=== PATIENT | male | born 1950 | race Two or more races ===

== ENCOUNTER → 2018-04-18 | Outpatient (CLI) | payer MEDICARE ==
[2015-12-27 11:00] VITALS: BP 130/72
[~2018-04-18] MED LIST: ENAL5TAB PO; HYDR-2758 PO; HYDR-2762 PO; LEVO112T4 PO; LEVO150T PO; LEVO500T59 PO; MELO15TA23 PO; METF500T5 PO; OMEP40CA5 PO; OXYC-323 PO; OXYMETAZOLINE 0.05% NASAL SPRAY 30ML BOTTLE. NS ONE; PRAV40TA2 PO; PRED50TA PO; ZOLPIDEM 5 MG TABLET. PO ONE
--- NOTE | 2018-04-19 09:55 | SLEEP ---
DATE OF STUDY: 04/18/2018 ATTENDING PHYSICIAN: Dr. Muñiz. The patient is 67 years old who weighs 180 pounds with a BMI of 30. The patient had a previous sleep study in 2013 and was found to have moderate PROSPER with worsening during REM sleep. The patient has been using CPAP at 9 cm of water, but due to increased hypersomnia another split night study was requested by primary care physician. During the night of study, the patient spent 400 minutes in bed and slept for 343 minutes with a sleep efficiency of 86%. Sleep latency was 8 minutes with a REM latency of 197 minutes. Overall, sleep architecture showed increased stage I and stage 2 sleep, absent slow wave and normal REM sleep. During the initial diagnostic portion of the study, the patient slept for 132 minutes. During that time, there were 103 obstructive apneas, 1 mixed apnea, no central apneas and 11 hypopneas. The patient's apnea-hypopnea index was 52 per hour, supine index of 56 per hour. REM sleep was not seen during the diagnostic portion. EKG monitoring revealed normal sinus rhythm, average heart rate was 61 beats per minute. No sustained arrhythmias were observed. Nocturnal oximetry study revealed an average oxygen saturation of 94% with the lowest of 74%. 53% of time oxygen saturation remained between 80% and 89% and 2% of time between 70 and 79%. No clinically significant PLMS observed. The patient met the criteria for CPAP initiation. It was started at 5 cm water and titrated up to 18 cm of water. At the final pressure, the patient slept for 92 minutes. The patient had supine sleep as well as long REM period was observed. The patient's AHI was reduced to 0 per hour and oxygen saturation remained above 88% with the lowest of 86%. The patient used a full face medium size mask. IMPRESSION: 1. Severe sleep apnea-hypopnea syndrome at an AHI of 52 per hour. 2. Nocturnal hypoxia secondary to obstructive sleep apnea, but resolved with CPAP. 3. No clinically significant periodic limb movements of sleep. RECOMMENDATIONS: 1. CPAP at 18 cm water completely eliminated the patient's sleep apnea and should be used on a nightly basis. 2. Follow up in 4-6 weeks to assess compliance with CPAP and to document clinical improvement. 3. Weight loss is advised. 4. Avoid [employer] SUPER[employer]OR depressants. 5. Caution regarding driving until symptoms of sleep apnea resolve with the use of CPAP. JUHI GLASS MD DR: APARNA/rachel JOB#: [id number] / [id number] KARO Zuñiga MD
== END | disposition home or self-care (01) ==
LOC: SLPLAB 17:51
PROVIDERS: ATTEND Family Medicine
DX: G47.33 Obstructive sleep apnea (adult) (pediatric) (principal); I10 Essential (primary) hypertension; E11.9 Type 2 diabetes mellitus without complications; E78.5 Hyperlipidemia, unspecified; J44.9 Chronic obstructive pulmonary disease, unspecified; I25.10 Atherosclerotic heart disease of native coronary artery without angina pectoris; Z79.4 Long term (current) use of insulin; Z96.653 Presence of artificial knee joint, bilateral; Z82.49 Family history of ischemic heart disease and other diseases of the circulatory system; Z83.3 Family history of diabetes mellitus
CPT/HCPCS: 95810

== ENCOUNTER 2019-09-17 23:20 | Observation (INO) | payer MEDICARE ==
[~2019-09-17] VITALS: Ht 165.1 cm; Wt 81.2 kg
[~2019-09-17 23:20] MED LIST changes: -HYDR-2758 PO; +HYDR-2761 PO; -HYDR-2762 PO; +HYDR-2765 PO; +METF500T16 PO; -METF500T5 PO; +OMEP40CA45 PO; -OMEP40CA5 PO; -OXYC-323 PO; +OXYC1TAB15 PO; -OXYMETAZOLINE 0.05% NASAL SPRAY 30ML BOTTLE. NS ONE; -ZOLPIDEM 5 MG TABLET. PO ONE
[2019-09-18 02:59] LABS: BASO # 0.1 x10^3/uL (0.0-0.2); BASO % 1 % (0-3); EOS # 0.2 x10^3/uL (0.0-0.7); EOS % 2 % (0-3); HEMATOCRIT 41.3 % (39.0-53.0); HEMOGLOBIN 14.1 g/dL (13.0-17.5); LYMPH # 2.9 x10^3/uL (1.0-4.8); LYMPH % 20 % (24-48); MEAN CORPUSCULAR HEMOGLOBIN 32 pg (25-35); MEAN CORPUSCULAR HGB CONC 34 g/dL (31-37); MEAN CORPUSCULAR VOLUME 94 fL (79-100); MONO # 1.4 x10^3/uL (0.0-1.1); MONO % 10 % (0-9); NEUT % 69 % (31-73); PLATELET COUNT 329 x10^3/uL (140-400); RED BLOOD COUNT 4.38 x10^6/uL (4.30-5.70); RED CELL DISTRIBUTION WIDTH 12.5 % (11.5-14.5); WHITE BLOOD COUNT 14.6 x10^3/uL (4.0-11.0)
[2019-09-18] MEDS ORDERED: IPRATRPIUM/ALBUTEROL 0.5/2.5MG 3 ML NEBU. NEB ONE (03:00)
[2019-09-18 03:04] LABS: CALCIUM 8.9 mg/dL (8.5-10.1); GFR 74.5; POTASSIUM 4.3 mmol/L (3.5-5.1)
--- NOTE | 2019-09-18 03:07 | PHYS DOC ---
Past Medical History Past Medical History: Bronchitis Past Surgical History: No Surgical History Additional Information: PT. STOPPED SMOKING RECENTLY. Alcohol Use: None Drug Use: None Adult General Chief Complaint Chief Complaint: SHORTNESS OF BREATH [facility] HPI Patient is a 69 year old male with history of who presents with shortness of breath, productive cough with fever chills sweats. Symptom onset began approximately 2 weeks ago and has gradually progress. Patient reports shortness of breath at rest. Denies history of COPD or asthma. Patient reports chest wall pain with cough and with light exertion. No other acute symptoms or complaints. Patient smokes cigarettes. [] Review of Systems Review of Systems ROS as per HPI All other systems were reviewed and found to be within normal limits, except as documented in this note. Current Medications Current Medications Current Medications Medications (Trade) Dose Ordered Sig/Michelle Start Time Stop Time Status Last Admin Dose Admin Albuterol/ Ipratropium (Duoneb) 3 ml 1X ONCE 09/18/19 03:00 09/18/19 03:01 DC 09/18/19 03:15 3 ML Azithromycin 500 mg/Sodium Chloride 250 ml @ 250 mls/hr 1X ONCE 09/18/19 03:30 09/18/19 04:29 DC 09/18/19 03:57 250 MLS/HR Ceftriaxone Sodium (Rocephin) 1 gm 1X ONCE 09/18/19 03:30 09/18/19 03:31 DC 09/18/19 03:50 1 GM Sodium Chloride 1,000 ml @ 1,000 mls/hr 1X ONCE 09/18/19 03:30 09/18/19 04:29 DC 09/18/19 03:50 1,000 MLS/HR Allergies Allergies Allergies Coded Allergies Type Severity Reaction Last Updated Verified No Known Drug Allergies 07/21/15 No Physical Exam Physical Exam ConstitutionalAcutely ill-appearing. [] HENT: Normocephalic, atraumatic, bilateral external ears normal, oropharynx moist, nose normal. [] Eyes: PERRLA, EOMI, conjunctiva normal, no discharge. [] Neck: Normal range of motion. [] Cardiovascular:Heart rate regular rhythm, no murmur [] Lungs & Thorax: Respirations nonlabored, coarse diminished breath sounds with rhonchi throughout.[] Abdomen: Bowel sounds normal. [] Skin: Warm, dry, no erythema, no rash. [] Back: No tenderness. [] Extremities: No tenderness, pedal edema. [] Neurologic: Alert and oriented X 3, normal motor function, normal sensory function, no focal deficits noted. [] Psychologic: Affect normal, judgement normal, mood normal. [] Current Patient Data Vital Signs Vital Signs Date Time Temp Pulse Resp B/P (MAP) Pulse Ox O2 Delivery O2 Flow Rate FiO2 09/18/19 04:00 88 20 133/68 (89) 95 Nasal Cannula 2.0 Lab Values Laboratory Tests Test 09/18/19 02:45 09/18/19 03:03 White Blood Count 14.6 x10^3/uL (4.0-11.0) H Red Blood Count 4.38 x10^6/uL (4.30-5.70) Hemoglobin 14.1 g/dL (13.0-17.5) Hematocrit 41.3 % (39.0-53.0) Mean Corpuscular Volume 94 fL (79-100) Mean Corpuscular Hemoglobin 32 pg (25-35) Mean Corpuscular Hemoglobin Concent 34 g/dL (31-37) Red Cell Distribution Width 12.5 % (11.5-14.5) Platelet Count 329 x10^3/uL (140-400) Neutrophils (%) (Auto) 69 % (31-73) Lymphocytes (%) (Auto) 20 % (24-48) L Monocytes (%) (Auto) 10 % (0-9) H Eosinophils (%) (Auto) 2 % (0-3) Basophils (%) (Auto) 1 % (0-3) Neutrophils # (Auto) 10.0 x10^3/uL (1.8-7.7) H Lymphocytes # (Auto) 2.9 x10^3/uL (1.0-4.8) Monocytes # (Auto) 1.4 x10^3/uL (0.0-1.1) H Eosinophils # (Auto) 0.2 x10^3/uL (0.0-0.7) Basophils # (Auto) 0.1 x10^3/uL (0.0-0.2) Sodium Level 135 mmol/L (136-145) L Potassium Level 4.3 mmol/L (3.5-5.1) Chloride Level 98 mmol/L (98-107) Carbon Dioxide Level 29 mmol/L (21-32) Anion Gap 8 (6-14) Blood Urea Nitrogen 8 mg/dL (8-26) Creatinine 1.0 mg/dL (0.7-1.3) Estimated GFR (Cockcroft-Gault) 74.5 BUN/Creatinine Ratio 8 (6-20) Glucose Level 266 mg/dL (70-99) H Lactic Acid Level 1.6 mmol/L (0.4-2.0) Calcium Level 8.9 mg/dL (8.5-10.1) Total Bilirubin 0.6 mg/dL (0.2-1.0) Aspartate Amino Transferase (AST) 20 U/L (15-37) Alanine Aminotransferase (ALT) 20 U/L (16-63) Alkaline Phosphatase 91 U/L (46-116) Troponin I Quantitative < 0.017 ng/mL (0.000-0.055) MQ-Uod-Y-Type Natriuretic Peptide 34 pg/mL (0-124) Total Protein 7.6 g/dL (6.4-8.2) Albumin 3.2 g/dL (3.4-5.0) L Albumin/Globulin Ratio 0.7 (1.0-1.7) L Influenza Type A Antigen Negative (NEGATIVE) Influenza Type B Antigen Negative (NEGATIVE) Laboratory Tests 09/18/19 02:45 Laboratory Tests 09/18/19 02:45 EKG EKG [EKG: Reviewed] Radiology/Procedures Radiology/Procedures [Chest XR: NAD per radiology reprot. ] Course & Med Decision Making Course & Med Decision Making Pertinent Labs and Imaging studies reviewed. (See chart for details) Patient with clinical pneumonia with resp compromise not evident on imaging. IVF and abx given. Will admit to the hospitalist service Dragon Disclaimer Dragon Disclaimer This electronic medical record was generated, in whole or in part, using a voice recognition dictation system. Departure Departure Impression: Primary Impression: Pneumonia Disposition: ADMITTED INPATIENT Condition: STABLE Referrals: UNKNOWN PCP NAME (PCP) KIMO DHILLON DO Sep 18, 2019 03:07
[2019-09-18 03:10] LABS: ALBUMIN 3.2 g/dL (3.4-5.0); ALBUMIN/GLOBULIN RATIO 0.7 (1.0-1.7); TOTAL BILIRUBIN 0.6 mg/dL (0.2-1.0); TOTAL PROTEIN 7.6 g/dL (6.4-8.2)
[2019-09-18] MEDS ORDERED: AZITHROMYCIN 500 MG in IV NORMAL SALINE 250ML 250 ML IV ONE (03:30)
[2019-09-18] MEDS ORDERED: cefTRIAXone IV Push 1 GM VIAL. IVP ONE (03:30)
[2019-09-18] MEDS ORDERED: IV NORMAL SALINE 1000ML BAG 1,000 ML IV ONE (03:30)
[2019-09-18 03:31] LABS: INFLUENZA A PATIENT NEGATIVE (NEGATIVE); INFLUENZA B PATIENT NEGATIVE (NEGATIVE)
--- NOTE | 2019-09-18 04:00 | RAD ---
EXAM: AP View of the chest DATE: 09/18/2019 3:07 AM INDICATION: Shortness of breath COMPARISON: No Prior FINDINGS: The heart is not enlarged. Aorta is mildly tortuous. Mediastinal and hilar contours are normal. No focal parenchymal airspace opacity. Calcified granuloma lower left lung. No pleural effusion or pneumothorax. IMPRESSION: No evidence for acute cardiopulmonary process. Electronically signed by: Fadi Juárez MD (09/18/2019 3:57 AM) [facility]
--- NOTE | 2019-09-18 07:00 | EKG ---
[facility] [address] [place] [address] Test Date: 2019-09-18 Test Time: 03:04:46 Pat Name: RUBEN CADENA Department: Room: Gender: M Training Consultant: : [id number] Requested By: KIMO DHILLON Order Number: [id number] Reading MD: Measurements Intervals [place] Rate: 81 P: 55 MD: 164 QRS: 69 QRSD: 90 T: 66 QT: 354 QTc: 416 Interpretive Statements SINUS RHYTHM QRS(T) CONTOUR ABNORMALITY CONSIDER ANTEROSEPTAL MYOCARDIAL DAMAGE CONSIDER INFERIOR MYOCARDIAL DAMAGE POSSIBLY ABNORMAL ECG RI6.01 No previous ECG available for comparison
[2019-09-18 07:15] VITALS: BP 107/56
[2019-09-18] MEDS: IPRATRPIUM/ALBUTEROL 0.5/2.5MG 3 ML NEBU. NEB SCH ×4 (08:08→20:10)
[2019-09-18 11:04] VITALS: BP 123/67
[2019-09-18] MEDS ORDERED: AZITHROMYCIN 250 MG TABLET. PO ONE (11:45)
[2019-09-18] MEDS ORDERED: IV DEXTROSE 5% 250 ML BAG. IV PRN (11:45)
[2019-09-18] MEDS ORDERED: guaiFENesin DM 200MG/20MG 10 ML SYRUP PO PRN (11:45)
[2019-09-18] MEDS ORDERED: DEXTROSE 50% 25 GM / 50ML DISP.SYRIN. IV PRN (11:45)
[2019-09-18] MEDS: PANTOPRAZOLE 40 MG TABLET.DR. PO SCH (13:08)
[2019-09-18] MEDS: metFORMIN 500 MG TABLET PO SCH ×2 (13:08→17:48)
[2019-09-18] MEDS: BENZONATATE 100 MG CAPSULE. PO SCH ×2 (13:12→21:57)
[2019-09-18] MEDS: INSULIN LISPRO 300 UNITS/3 ML VIAL. SQ SCH ×2 (13:12→17:54)
--- NOTE | 2019-09-18 13:20 | NUR ---
SS following for discharge planning. SS reviewed pt chart. Pt is from home with spouse and is currently on room air. PT/OT ordered. SS will continue to follow for discharge planning.
--- NOTE | 2019-09-18 14:53 | PDOC1 ---
History and Physical Date of Admission Date of Admission DATE: 09/18/19 TIME: 14:49 Identification/Chief Complaint Chief Complaint cough x 3 weeks Source Source: Caregiver, Chart review, Patient History of Present Illness History of Present Illness 69 male, cough, heriberto sputum,weak x 3 weeks. no fevers, non smoker, Possible pNA On CXR, WBC 14, i continued CAP coverage from ER. FLu NEg, mild hyponatremia 135.No consults needed Past Medical History Cardiovascular: HTN, Hyperlipidemia Pulmonary: COPD CENTRAL NERVOUS SYSTEM: Other GI: No pertinent hx Heme/Onc: No pertinent hx Hepatobiliary: No pertinent hx Psych: No pertinent hx Musculoskeletal: Osteoarthritis Rheumatologic: No pertinent hx Infectious disease: No pertinent hx Renal/: No pertinent hx Endocrine: Diabetes, Hypothyroidism Past Surgical History Past Surgical History: Total knee replacement Family History Family History: Heart Disease Social History Smoke: No ALCOHOL: none Drugs: None Current Medications Current Medications Current Medications Albuterol/ Ipratropium (Duoneb) 3 ml 1X ONCE NEB Last administered on 09/18/19at 03:15; Start 09/18/19 at 03:00; Stop 09/18/19 at 03:01; Status DC Ceftriaxone Sodium (Rocephin) 1 gm 1X ONCE IVP Last administered on 09/18/19at 03:50; Start 09/18/19 at 03:30; Stop 09/18/19 at 03:31; Status DC Azithromycin 500 mg/Sodium Chloride 250 ml @ 250 mls/hr 1X ONCE IV Last administered on 09/18/19at 03:57; Start 09/18/19 at 03:30; Stop 09/18/19 at 04:29; Status DC Sodium Chloride 1,000 ml @ 1,000 mls/hr 1X ONCE IV Last administered on 09/18/19at 03:50; Start 09/18/19 at 03:30; Stop 09/18/19 at 04:29; Status DC Albuterol/ Ipratropium (Duoneb) 3 ml RTQID NEB Last administered on 09/18/19at 12:07; Start 09/18/19 at 08:00; Stop 09/19/19 at 07:59 Benzonatate (Tessalon Perle) 100 mg COH160 PO Last administered on 09/18/19at 13:12; Start 09/18/19 at 14:00 Guaifenesin (Robitussin Dm) 10 ml PRN Q6HRS PRN PO COUGH; Start 09/18/19 at 11:45 Ceftriaxone Sodium (Rocephin) 1 gm Q24H IVP ; Start 09/19/19 at 06:00 Azithromycin (Zithromax) 250 mg DAILY PO ; Start 09/19/19 at 09:00 Azithromycin (Zithromax) 250 mg 1X ONCE PO ; Start 09/18/19 at 11:45; Stop 09/18/19 at 11:46; Status UNV Levothyroxine Sodium (Synthroid) 150 mcg QHS PO ; Start 09/18/19 at 21:00 Metformin HCl (Glucophage) 500 mg BIDWMEALS PO Last administered on 09/18/19at 13:08; Start 09/18/19 at 12:00 Oxycodone/ Acetaminophen (Percocet 5/325) 1 tab PRN QID PRN PO pain; Start 09/18/19 at 11:45 Lisinopril (Prinivil) 10 mg QHS PO ; Start 09/18/19 at 21:00 Pantoprazole Sodium (Protonix) 40 mg DAILYAC PO Last administered on 09/18/19at 13:08; Start 09/18/19 at 12:00 Atorvastatin Calcium (Lipitor) 10 mg QHS PO ; Start 09/18/19 at 21:00 Insulin Human Lispro (HumaLOG) 0-9 UNITS TIDWMEALS SQ Last administered on 09/18/19at 13:12; Start 09/18/19 at 12:00 Dextrose (Dextrose 50%-Water Syringe) 12.5 gm PRN Q15MIN PRN IV SEE COMMENTS; Start 09/18/19 at 11:45 Dextrose (Iv Dextrose 5%) 250 ml PRN Q15MIN PRN IV SEE COMMENTS; Start 09/18/19 at 11:45 Active Scripts Active Prednisone 50 Mg Tablet 1 Tab PO DAILY Levaquin (Levofloxacin) 500 Mg Tablet 500 Mg PO DAILY16 Synthroid (Levothyroxine Sodium) 150 Mcg Tablet 150 Mcg PO QHS Reported Percocet 5-325 Mg Tablet (Oxycodone/Acetaminophen) 1 Each Tablet 1-2 Tab PO Q4-6HRS Gave this moring May take when needed Omeprazole 40 Mg Capsule.dr 40 Mg PO DAILY Gave this morning Take tomorrow morning before breakfast Metformin Hcl 500 Mg Tablet 500 Mg PO BIDWMEALS Gave this am Take before dinner Pravastatin Sodium 40 Mg Tablet 40 Mg PO HS Gave last night Take tonight Enalapril Maleate 5 Mg Tablet 5 Mg PO HS Gave last night Take again tonight Allergies Allergies: Coded Allergies: No Known Drug Allergies (Unverified , 07/21/15) ROS Review of System asper HPI, all else is neg Physical Exam General: Alert, Oriented X3, Cooperative, No acute distress HEENT: Atraumatic, PERRLA, EOMI Lungs: Normal air movement, Other (dimnished BS) Heart: S1S2, RRR, no thrills, no rubs, no gallops, no murmurs Abdomen: Normal bowel sounds, Soft, No tenderness, No hepatosplenomegaly, No masses Male Genitals Exam: normal genitalia, normal prostate Rectal Exam: not examined PELVIC: Nml ext genitalia, Nml ext vulva, Nml ext vagina, Nml ext cervic, Nml ext uterus Extremities: No clubbing, No cyanosis, No edema, Normal pulses, No tenderness/ swelling Skin: No rashes, No breakdown, No significant lesion Neuro: Normal gait, Normal speech, Strength at 5/5 X4 ext, Normal tone, Sensation intact, Cranial nerves 3-12 NL, Reflexes 2+ Psych/Mental Status: Mental status NL, Mood NL Vitals Vitals Vital Signs Date Time Temp Pulse Resp B/P (MAP) Pulse Ox O2 Delivery O2 Flow Rate FiO2 09/18/19 12:07 Room Air 09/18/19 11:04 97.8 89 20 123/67 (85) 96 97.8 09/18/19 04:45 2.0 Labs Labs Laboratory Tests Test 09/18/19 02:45 09/18/19 03:03 09/18/19 12:03 09/18/19 12:30 White Blood Count 14.6 x10^3/uL (4.0-11.0) Red Blood Count 4.38 x10^6/uL (4.30-5.70) Hemoglobin 14.1 g/dL (13.0-17.5) Hematocrit 41.3 % (39.0-53.0) Mean Corpuscular Volume 94 fL (79-100) Mean Corpuscular Hemoglobin 32 pg (25-35) Mean Corpuscular Hemoglobin Concent 34 g/dL (31-37) Red Cell Distribution Width 12.5 % (11.5-14.5) Platelet Count 329 x10^3/uL (140-400) Neutrophils (%) (Auto) 69 % (31-73) Lymphocytes (%) (Auto) 20 % (24-48) Monocytes (%) (Auto) 10 % (0-9) Eosinophils (%) (Auto) 2 % (0-3) Basophils (%) (Auto) 1 % (0-3) Neutrophils # (Auto) 10.0 x10^3/uL (1.8-7.7) Lymphocytes # (Auto) 2.9 x10^3/uL (1.0-4.8) Monocytes # (Auto) 1.4 x10^3/uL (0.0-1.1) Eosinophils # (Auto) 0.2 x10^3/uL (0.0-0.7) Basophils # (Auto) 0.1 x10^3/uL (0.0-0.2) Sodium Level 135 mmol/L (136-145) Potassium Level 4.3 mmol/L (3.5-5.1) Chloride Level 98 mmol/L (98-107) Carbon Dioxide Level 29 mmol/L (21-32) Anion Gap 8 (6-14) Blood Urea Nitrogen 8 mg/dL (8-26) Creatinine 1.0 mg/dL (0.7-1.3) Estimated GFR (Cockcroft-Gault) 74.5 BUN/Creatinine Ratio 8 (6-20) Glucose Level 266 mg/dL (70-99) Lactic Acid Level 1.6 mmol/L (0.4-2.0) Calcium Level 8.9 mg/dL (8.5-10.1) Total Bilirubin 0.6 mg/dL (0.2-1.0) Aspartate Amino Transf (AST/SGOT) 20 U/L (15-37) Alanine Aminotransferase (ALT/SGPT) 20 U/L (16-63) Alkaline Phosphatase 91 U/L (46-116) Troponin I Quantitative < 0.017 ng/mL (0.000-0.055) ED-Mum-T-Type Natriuretic Peptide 34 pg/mL (0-124) Total Protein 7.6 g/dL (6.4-8.2) Albumin 3.2 g/dL (3.4-5.0) Albumin/Globulin Ratio 0.7 (1.0-1.7) Influenza Type A Antigen Negative (NEGATIVE) Influenza Type B Antigen Negative (NEGATIVE) Glucose (Fingerstick) 338 mg/dL (70-99) Erythrocyte Sedimentation Rate 68 (0-15) Laboratory Tests Test 09/18/19 02:45 09/18/19 03:03 09/18/19 12:03 09/18/19 12:30 White Blood Count 14.6 x10^3/uL (4.0-11.0) Red Blood Count 4.38 x10^6/uL (4.30-5.70) Hemoglobin 14.1 g/dL (13.0-17.5) Hematocrit 41.3 % (39.0-53.0) Mean Corpuscular Volume 94 fL (79-100) Mean Corpuscular Hemoglobin 32 pg (25-35) Mean Corpuscular Hemoglobin Concent 34 g/dL (31-37) Red Cell Distribution Width 12.5 % (11.5-14.5) Platelet Count 329 x10^3/uL (140-400) Neutrophils (%) (Auto) 69 % (31-73) Lymphocytes (%) (Auto) 20 % (24-48) Monocytes (%) (Auto) 10 % (0-9) Eosinophils (%) (Auto) 2 % (0-3) Basophils (%) (Auto) 1 % (0-3) Neutrophils # (Auto) 10.0 x10^3/uL (1.8-7.7) Lymphocytes # (Auto) 2.9 x10^3/uL (1.0-4.8) Monocytes # (Auto) 1.4 x10^3/uL (0.0-1.1) Eosinophils # (Auto) 0.2 x10^3/uL (0.0-0.7) Basophils # (Auto) 0.1 x10^3/uL (0.0-0.2) Sodium Level 135 mmol/L (136-145) Potassium Level 4.3 mmol/L (3.5-5.1) Chloride Level 98 mmol/L (98-107) Carbon Dioxide Level 29 mmol/L (21-32) Anion Gap 8 (6-14) Blood Urea Nitrogen 8 mg/dL (8-26) Creatinine 1.0 mg/dL (0.7-1.3) Estimated GFR (Cockcroft-Gault) 74.5 BUN/Creatinine Ratio 8 (6-20) Glucose Level 266 mg/dL (70-99) Lactic Acid Level 1.6 mmol/L (0.4-2.0) Calcium Level 8.9 mg/dL (8.5-10.1) Total Bilirubin 0.6 mg/dL (0.2-1.0) Aspartate Amino Transf (AST/SGOT) 20 U/L (15-37) Alanine Aminotransferase (ALT/SGPT) 20 U/L (16-63) Alkaline Phosphatase 91 U/L (46-116) Troponin I Quantitative < 0.017 ng/mL (0.000-0.055) LA-Tkw-S-Type Natriuretic Peptide 34 pg/mL (0-124) Total Protein 7.6 g/dL (6.4-8.2) Albumin 3.2 g/dL (3.4-5.0) Albumin/Globulin Ratio 0.7 (1.0-1.7) Influenza Type A Antigen Negative (NEGATIVE) Influenza Type B Antigen Negative (NEGATIVE) Glucose (Fingerstick) 338 mg/dL (70-99) Erythrocyte Sedimentation Rate 68 (0-15) VTE Prophylaxis Ordered VTE Prophylaxis Devices: Yes VTE Pharmacological Prophylaxi: Yes Assessment/Plan Assessment/Plan CAP , gram positive, gram negative LEUkocytosis PLAN: OBS, home tmr cap coverage Recheck leukocytosis tmr JOSETTE HSU MD Sep 18, 2019 14:53
[2019-09-18 15:09] VITALS: BP 114/61
[2019-09-18 18:44] LABS: BILIRUBIN,URINE NEGATIVE (NEG); CLARITY,URINE CLEAR; COLOR,URINE YELLOW; NITRITE,URINE NEGATIVE (NEG); PROTEIN,URINE NEGATIVE (NEG-TRACE)
[2019-09-18 18:57] LABS: RBC,URINE 0 /HPF (0-2)
[2019-09-18 18:58] LABS: BACTERIA,URINE 0 /HPF (0-FEW); SQUAMOUS EPITHELIAL CELL,UR OCC /LPF; WBC,URINE OCC /HPF (0-4)
[2019-09-18 19:55] VITALS: BP 116/65
[2019-09-18] MEDS ORDERED: ATORVASTATIN CALCIUM 10 MG TABLET. PO SCH (21:00)
[2019-09-18] MEDS ORDERED: LISINOPRIL 10 MG TABLET PO SCH (21:00)
[2019-09-18] MEDS ORDERED: LEVOTHYROXINE 150 MCG TABLET PO SCH (21:00)
[2019-09-18] MEDS: oxyCODONE/APAP 5/325 1 TAB TABLET PO PRN (22:02)
[2019-09-18 23:45] VITALS: BP 93/58
[2019-09-19] MEDS: oxyCODONE/APAP 5/325 1 TAB TABLET PO PRN (02:27)
[2019-09-19 03:40] VITALS: BP 98/53
[2019-09-19 04:58] LABS: BASO # 0.1 x10^3/uL (0.0-0.2); BASO % 1 % (0-3); EOS # 0.2 x10^3/uL (0.0-0.7); EOS % 2 % (0-3); HEMATOCRIT 36.6 % (39.0-53.0); HEMOGLOBIN 12.5 g/dL (13.0-17.5); LYMPH # 2.2 x10^3/uL (1.0-4.8); LYMPH % 17 % (24-48); MEAN CORPUSCULAR HEMOGLOBIN 32 pg (25-35); MEAN CORPUSCULAR HGB CONC 34 g/dL (31-37); MEAN CORPUSCULAR VOLUME 94 fL (79-100); MONO # 1.2 x10^3/uL (0.0-1.1); MONO % 9 % (0-9); NEUT # 9.3 x10^3/uL (1.8-7.7); NEUT % 72 % (31-73); PLATELET COUNT 330 x10^3/uL (140-400); RED CELL DISTRIBUTION WIDTH 12.3 % (11.5-14.5)
[2019-09-19 05:30] LABS: CALCIUM 8.5 mg/dL (8.5-10.1); GFR 74.5; POTASSIUM 3.9 mmol/L (3.5-5.1)
[2019-09-19] MEDS ORDERED: cefTRIAXone IV Push 1 GM VIAL. IVP SCH (06:00)
[2019-09-19 07:15] VITALS: BP 119/63
[2019-09-19] MEDS ORDERED: AZITHROMYCIN 250 MG TABLET. PO SCH (09:00)
[2019-09-19] MEDS ORDERED: INSULIN GLARGINE SYRINGE. SQ STA (09:21)
[2019-09-19] MEDS: BENZONATATE 100 MG CAPSULE. PO SCH ×2 (09:43→14:25)
[2019-09-19] MEDS: metFORMIN 500 MG TABLET PO SCH (09:44)
[2019-09-19] MEDS: PANTOPRAZOLE 40 MG TABLET.DR. PO SCH (09:45)
[2019-09-19] MEDS: INSULIN LISPRO 300 UNITS/3 ML VIAL. SQ SCH ×2 (09:51→12:26)
[2019-09-19 10:58] VITALS: BP 85/53
[2019-09-19] MEDS ORDERED: INSU100I13 SQ (12:54)
[2019-09-19] MEDS ORDERED: BENZ-8 PO (12:54)
--- NOTE | 2019-09-19 12:57 | PDOC3 ---
Discharge Summary Visit Information Date of Admission: Sep 18, 2019 Date of Discharge: Sep 19, 2019 Admitting Diagnosis Comment: CAP , gram positive, gram negative LEUkocytosis DM 2 uncontrolled - Brief Hospital Course Allergies Allergies Coded Allergies Type Severity Reaction Last Updated Verified No Known Drug Allergies 07/21/15 No Vital Signs Vital Signs Date Time Temp Pulse Resp B/P (MAP) Pulse Ox O2 Delivery O2 Flow Rate FiO2 09/19/19 10:58 98.3 80 20 85/53 (64) 97 Room Air 98.3 09/18/19 20:00 2.0 Lab Results Laboratory Tests Test 09/18/19 02:45 09/18/19 03:03 09/18/19 12:03 09/18/19 12:30 White Blood Count 14.6 x10^3/uL (4.0-11.0) Red Blood Count 4.38 x10^6/uL (4.30-5.70) Hemoglobin 14.1 g/dL (13.0-17.5) Hematocrit 41.3 % (39.0-53.0) Mean Corpuscular Volume 94 fL (79-100) Mean Corpuscular Hemoglobin 32 pg (25-35) Mean Corpuscular Hemoglobin Concent 34 g/dL (31-37) Red Cell Distribution Width 12.5 % (11.5-14.5) Platelet Count 329 x10^3/uL (140-400) Neutrophils (%) (Auto) 69 % (31-73) Lymphocytes (%) (Auto) 20 % (24-48) Monocytes (%) (Auto) 10 % (0-9) Eosinophils (%) (Auto) 2 % (0-3) Basophils (%) (Auto) 1 % (0-3) Neutrophils # (Auto) 10.0 x10^3/uL (1.8-7.7) Lymphocytes # (Auto) 2.9 x10^3/uL (1.0-4.8) Monocytes # (Auto) 1.4 x10^3/uL (0.0-1.1) Eosinophils # (Auto) 0.2 x10^3/uL (0.0-0.7) Basophils # (Auto) 0.1 x10^3/uL (0.0-0.2) Sodium Level 135 mmol/L (136-145) Potassium Level 4.3 mmol/L (3.5-5.1) Chloride Level 98 mmol/L (98-107) Carbon Dioxide Level 29 mmol/L (21-32) Anion Gap 8 (6-14) Blood Urea Nitrogen 8 mg/dL (8-26) Creatinine 1.0 mg/dL (0.7-1.3) Estimated GFR (Cockcroft-Gault) 74.5 BUN/Creatinine Ratio 8 (6-20) Glucose Level 266 mg/dL (70-99) Lactic Acid Level 1.6 mmol/L (0.4-2.0) Calcium Level 8.9 mg/dL (8.5-10.1) Total Bilirubin 0.6 mg/dL (0.2-1.0) Aspartate Amino Transf (AST/SGOT) 20 U/L (15-37) Alanine Aminotransferase (ALT/SGPT) 20 U/L (16-63) Alkaline Phosphatase 91 U/L (46-116) Troponin I Quantitative < 0.017 ng/mL (0.000-0.055) KY-Szn-D-Type Natriuretic Peptide 34 pg/mL (0-124) Total Protein 7.6 g/dL (6.4-8.2) Albumin 3.2 g/dL (3.4-5.0) Albumin/Globulin Ratio 0.7 (1.0-1.7) Influenza Type A Antigen Negative (NEGATIVE) Influenza Type B Antigen Negative (NEGATIVE) Glucose (Fingerstick) 338 mg/dL (70-99) Erythrocyte Sedimentation Rate 68 (0-15) Test 09/18/19 16:46 09/18/19 17:20 09/18/19 21:11 09/19/19 04:30 Glucose (Fingerstick) 352 mg/dL (70-99) 247 mg/dL (70-99) Urine Collection Type Unknown Urine Color Yellow Urine Clarity Clear Urine pH 7.0 Urine Specific [place] >=1.030 Urine Protein Negative mg/dL (NEG-TRACE) Urine Glucose (UA) >=1000 mg/dL (NEG) Urine Ketones (Stick) Negative mg/dL (NEG) Urine Blood Negative (NEG) Urine Nitrite Negative (NEG) Urine Bilirubin Negative (NEG) Urine Urobilinogen Dipstick 1.0 mg/dL (0.2 mg/dL) Urine Leukocyte Esterase Negative (NEG) Urine RBC 0 /HPF (0-2) Urine WBC Occ /HPF (0-4) Urine Squamous Epithelial Cells Occ /LPF Urine Bacteria 0 /HPF (0-FEW) White Blood Count 13.0 x10^3/uL (4.0-11.0) Red Blood Count 3.90 x10^6/uL (4.30-5.70) Hemoglobin 12.5 g/dL (13.0-17.5) Hematocrit 36.6 % (39.0-53.0) Mean Corpuscular Volume 94 fL (79-100) Mean Corpuscular Hemoglobin 32 pg (25-35) Mean Corpuscular Hemoglobin Concent 34 g/dL (31-37) Red Cell Distribution Width 12.3 % (11.5-14.5) Platelet Count 330 x10^3/uL (140-400) Neutrophils (%) (Auto) 72 % (31-73) Lymphocytes (%) (Auto) 17 % (24-48) Monocytes (%) (Auto) 9 % (0-9) Eosinophils (%) (Auto) 2 % (0-3) Basophils (%) (Auto) 1 % (0-3) Neutrophils # (Auto) 9.3 x10^3/uL (1.8-7.7) Lymphocytes # (Auto) 2.2 x10^3/uL (1.0-4.8) Monocytes # (Auto) 1.2 x10^3/uL (0.0-1.1) Eosinophils # (Auto) 0.2 x10^3/uL (0.0-0.7) Basophils # (Auto) 0.1 x10^3/uL (0.0-0.2) Sodium Level 135 mmol/L (136-145) Potassium Level 3.9 mmol/L (3.5-5.1) Chloride Level 98 mmol/L (98-107) Carbon Dioxide Level 27 mmol/L (21-32) Anion Gap 10 (6-14) Blood Urea Nitrogen 8 mg/dL (8-26) Creatinine 1.0 mg/dL (0.7-1.3) Estimated GFR (Cockcroft-Gault) 74.5 Glucose Level 251 mg/dL (70-99) Calcium Level 8.5 mg/dL (8.5-10.1) Test 09/19/19 07:11 09/19/19 11:16 Glucose (Fingerstick) 257 mg/dL (70-99) 331 mg/dL (70-99) Laboratory Tests Test 09/18/19 16:46 09/18/19 17:20 09/18/19 21:11 09/19/19 04:30 Glucose (Fingerstick) 352 mg/dL (70-99) 247 mg/dL (70-99) Urine Collection Type Unknown Urine Color Yellow Urine Clarity Clear Urine pH 7.0 Urine Specific [place] >=1.030 Urine Protein Negative mg/dL (NEG-TRACE) Urine Glucose (UA) >=1000 mg/dL (NEG) Urine Ketones (Stick) Negative mg/dL (NEG) Urine Blood Negative (NEG) Urine Nitrite Negative (NEG) Urine Bilirubin Negative (NEG) Urine Urobilinogen Dipstick 1.0 mg/dL (0.2 mg/dL) Urine Leukocyte Esterase Negative (NEG) Urine RBC 0 /HPF (0-2) Urine WBC Occ /HPF (0-4) Urine Squamous Epithelial Cells Occ /LPF Urine Bacteria 0 /HPF (0-FEW) White Blood Count 13.0 x10^3/uL (4.0-11.0) Red Blood Count 3.90 x10^6/uL (4.30-5.70) Hemoglobin 12.5 g/dL (13.0-17.5) Hematocrit 36.6 % (39.0-53.0) Mean Corpuscular Volume 94 fL (79-100) Mean Corpuscular Hemoglobin 32 pg (25-35) Mean Corpuscular Hemoglobin Concent 34 g/dL (31-37) Red Cell Distribution Width 12.3 % (11.5-14.5) Platelet Count 330 x10^3/uL (140-400) Neutrophils (%) (Auto) 72 % (31-73) Lymphocytes (%) (Auto) 17 % (24-48) Monocytes (%) (Auto) 9 % (0-9) Eosinophils (%) (Auto) 2 % (0-3) Basophils (%) (Auto) 1 % (0-3) Neutrophils # (Auto) 9.3 x10^3/uL (1.8-7.7) Lymphocytes # (Auto) 2.2 x10^3/uL (1.0-4.8) Monocytes # (Auto) 1.2 x10^3/uL (0.0-1.1) Eosinophils # (Auto) 0.2 x10^3/uL (0.0-0.7) Basophils # (Auto) 0.1 x10^3/uL (0.0-0.2) Sodium Level 135 mmol/L (136-145) Potassium Level 3.9 mmol/L (3.5-5.1) Chloride Level 98 mmol/L (98-107) Carbon Dioxide Level 27 mmol/L (21-32) Anion Gap 10 (6-14) Blood Urea Nitrogen 8 mg/dL (8-26) Creatinine 1.0 mg/dL (0.7-1.3) Estimated GFR (Cockcroft-Gault) 74.5 Glucose Level 251 mg/dL (70-99) Calcium Level 8.5 mg/dL (8.5-10.1) Test 09/19/19 07:11 09/19/19 11:16 Glucose (Fingerstick) 257 mg/dL (70-99) 331 mg/dL (70-99) Brief Hospital Course Mr. Main is a 69 old male, DM on OHA< came in bec of 3 weeks heriberto sputrum and gen weakness, CXR maybe pNA so we treated accdgly, BUt BS 300s,on OHA< never on insulin, I had to start lantus 20 qhs and cont OHA and i wrote lantus and glucometer and BS strips scripts Pt seen and examined COnsultsl none Proc; CXR dc < 30 mins Discharge Information Condition at Discharge: Improved, Stable Disposition/Orders: D/C to Home Scheduled Benzonatate (Benzonatate) 100 Mg Capsule, 100 MG PO [id number] for cough, #30 Prescribed by: JOSETTE HSU on 09/19/19 1254 Enalapril Maleate (Enalapril Maleate) 5 Mg Tablet, 5 MG PO HS for high blood pressure, (Reported) Gave last night Take again tonight Entered as Reported by: CHINTAN VILLEDA on 07/03/15 1521 Last Action: Converted on 09/18/19 1134 by JOSETTE HSU Insulin Glargine,Hum.rec.anlog (Lantus Solostar) 100 Unit/1 Ml Insuln.pen, 20 UNIT SQ QHS for dm 2 for 30 Days, #15 Ref 5 Prescribed by: JOSETTE HSU on 09/19/19 1254 Levothyroxine Sodium (Synthroid) 150 Mcg Tablet, 150 MCG PO QHS, #30 Prescribed by: REG HILTON on 10/23/15 1010 Last Action: Continued on 09/18/191133 by JOSETTE HSU Metformin Hcl (Metformin Hcl) 500 Mg Tablet, 500 MG PO BIDWMEALS for ANTI- DIABETIC, Ref 0 (Reported) Gave this am Take before dinner Entered as Reported by: CHINTAN VILLEDA on 07/03/15 1523 Last Action: Continued on 09/18/191133 by JOSETTE HSU Omeprazole (Omeprazole) 40 Mg Capsule.dr, 40 MG PO DAILY for gastric upset, (Reported) Gave this morning Take tomorrow morning before breakfast Entered as Reported by: NONA ADRIAN on 07/07/15 1405 Last Action: Converted on 09/18/191133 by JOSETTE HSU Oxycodone/Apap 5-325 (Percocet 5-325 Mg Tablet ) 1 Each Tablet, 1-2 TAB PO Q4- 6HRS, #40 (Reported) Gave this moring May take when needed Entered as Reported by: DANILO ESCOBAR on 07/24/15 1437 Last Action: Continued on 09/18/191133 by JOSETTE HSU Pravastatin Sodium (Pravastatin Sodium) 40 Mg Tablet, 40 MG PO HS for high cholesterol, (Reported) Gave last night Take tonight Entered as Reported by: CHINTAN VILLEDA on 07/03/15 1522 Last Action: Converted on 09/18/191133 by JOSETTE HSU Discontinued Medications Levofloxacin (Levaquin) 500 Mg Tablet, 500 MG PO DAILY16, #7 Prescribed by: REG HILTON on 10/23/15 1010 Last Action: HELD on 09/18/191133 by JOSETTE HSU Prednisone (Prednisone) 50 Mg Tablet, 1 TAB PO DAILY, #5 Prescribed by: REG HILTON on 10/23/15 1010 Last Action: HELD on 09/18/191133 by JOSETTE SCHROEDER MD Sep 19, 2019 12:57
--- NOTE | 2019-09-19 15:05 | NUR ---
Discharge Note: RUBEN CADENA [address] [place] [address] Discharge instructions and discharge home medications reviewed with Patient and a copy given. All questions have been answered and understanding verbalized. The following instructions and handouts were given: f/u with PCP within one week. Discontinued lines and drains: Peripheral IV intact. Patient discharged to Home or Self Care with Family Member via [facility].
== END 2019-09-19 15:14 | disposition home or self-care (01) ==
LOC: ER 23:20 → 6 SOUTH 09-18 04:00
PROVIDERS: ADMIT Internal Medicine; ATTEND Internal Medicine
DX: J15.6 Pneumonia due to other Gram-negative bacteria (principal); J15.9 Unspecified bacterial pneumonia; D72.829 Elevated white blood cell count, unspecified; I10 Essential (primary) hypertension; E78.5 Hyperlipidemia, unspecified; J44.9 Chronic obstructive pulmonary disease, unspecified; E11.9 Type 2 diabetes mellitus without complications; E03.9 Hypothyroidism, unspecified; Z96.659 Presence of unspecified artificial knee joint; Z87.891 Personal history of nicotine dependence
CPT/HCPCS: 36415; 71045; 80048; 80053; 81001; 82962; 83605; 83880; 84484; 85025; 85651; 87040; 87804; 93005; 94640; 94760; 96365; 96372; 96375; 96376; 99284; G0378; J0456; J0696; J1815; J7030; J7050; J7620; Q0144; G0379